=== PATIENT | male | born 1955 | race Caucasian/White ===

== ENCOUNTER 2022-01-09 14:09 | Emergency (ER) | payer SELFPAY ==
[2022-01-09] VITALS (8 sets, daily range): BP systolic 144–153; BP diastolic 70–74; PULSE 73–87; RESP 16; TEMP 36.9; O2SAT 95–98; BMI 31.3
--- NOTE | 2022-01-09 14:59 | DI.CT.S_ITS ---
PROCEDURE: CT HEAD/BRAIN WO CON INDICATIONS: fall with facial injuries TECHNIQUE: Noncontrast 4.5 mm thick angled axial sections acquired from the foramen magnum to the vertex, with coronal and sagittal reformats. For radiation dose reduction, the following was used: automated exposure control, adjustment of mA and/or kV according to patient size. COMPARISON: [facility], CT, CT FACIAL BONES WO CON, 01/09/2022, 15:06. FINDINGS: Image quality: Excellent. CSF spaces: Basal cisterns are patent. No extra-axial fluid collections. The ventricles are symmetric in size and shape. Brain: No intracranial bleeds or masses. There is cerebral volume loss for age, with resultant ventricular and sulcal prominence. There are periventricular and deep white matter chronic small vessel ischemic changes. There is intracranial internal carotid artery atherosclerosis. Skull and face: Right periorbital soft tissue swelling is seen. Soft tissue swelling is also seen involving the bridge of the nose. Mildly displaced nasal bone fractures can be seen. Calvarium and visualized facial bones appear intact, without suspicious lesions. Sinuses: Visualized sinuses and mastoids are clear. IMPRESSION: There is right periorbital soft tissue swelling, with swelling across the bridge of the nose. Mildly displaced nasal bone fractures are seen. No acute intracranial hemorrhage is seen. No acute intracranial process is seen. Dictated by: Con Christian M.D. on 01/09/2022 at 14:25 Approved by: Con Christian M.D. on 01/09/2022 at 14:26
--- NOTE | 2022-01-09 14:59 | ED_ITS ---
HPI - Fall General Chief Complaint: Fall Stated Complaint: Fall, Hit Head on Toilet, Laceration Time Seen by Provider: 01/09/22 14:44 Source: patient Mode of arrival: Ambulatory History of Present Illness HPI Narrative: Patient is a 66-year-old male. Not on anticoagulation. Earlier today he was coming out of the shower and slipped and fell forward hitting his face on the toilet. There was a loss of consciousness. He sustained a cut to his head and also a contusion to his right eye. He was seen at the clinic on [facility] and was sent to the emergency department by private vehicle for further evaluation. Patient expresses no vision changes. No loose teeth and missing teeth. No extremity discomfort. No chest pain. No abdominal pain. Related Data Allergies Allergy/AdvReac Type Severity Reaction Status Date / Time No Known Drug Allergies Allergy Unverified 01/09/22 10:44 Review of Systems Review of Systems ROS Unobtainable: All systems reviewed & are unremarkable except as noted in HPI and below Patient History Medical History Healthy adult Social History Smoking Status: Current every day smoker Smoking Status: Current every day smoker Substance Use Type: does not use Exam Initial Vital Signs Initial Vital Signs: Vital Signs Pulse Oximetry 97 01/09/22 14:16 Const General: cooperative, comfortable, well developed and No ill appearing HENMT Head: abrasion, laceration and No palpable skull fracture Ears: hearing grossly normal bilaterally Nose: septum normal and No epistaxis Face and sinus: ecchymosis (Around right eye) Mouth: oral mucosae normal Teeth and gingiva: dentition normal Eyes Pupils: PERRL EOM: EOM intact bilaterally Other: Contusion and ecchymosis around the right eye. No hyphema noted. No subconjunctival hemorrhage noted. Chest Chest: No crepitus and No tenderness Resp Effort & Inspection: normal respiratory effort Auscultation: clear to auscultation bilaterally Cardio Rate: regular rate Rhythm: regular rhythm Back/Spine/Pelvis Cervical Spine: cervical muscular tenderness (Right side) and No cervical spinal tenderness Skin Other: 7 cm laceration to his frontal scalp. No active bleeding. Had a superficial abrasion just lateral to his left eye. Has contusion over his nose. Also has a contusion on the back of his right hand. Neuro General: patient alert, patient awake, patient oriented x3 and moves all extremi ties Extrem General: normal to inspection and capillary refill normal Psych Appearance: grossly normal and well kempt Procedures Laceration Repair Laceration 1: Site: scalp Size (cm): 7 Description: linear Depth: simple, single layer Local Anesthetic: lidocaine 1% Amount of anesthesia used (mL): 10 Pre-repair: wound explored and deep structures intact Skin layer closed with: marc Scores Nexus Score for C-Spine Focal Neurologic deficit present: No Midline spinal tenderness present: No Altered level of conciousness present: No Intoxication present: No Distracting Injury Present: No Nexus Criteria for C-spine: 0 Course Orders Ordered: ED Orders 01/09/22 14:59 CT facial bones wo con Stat CT head/brain wo con Stat Discontinued Medications Bacitracin (Bacitracin Oint 0.9 Gm Pckt) 1 applic TOP NOW ONE Stop: 01/09/22 16:18 Last Admin: 01/09/22 16:20 Dose: 1 applic Documented By: DAMARIS Diphtheria/Tetanus/Acell Pertussis (Tet,Diph,Pertuss(Acell),Vac/Pf 0.5 Ml Syringe) 0.5 ml IM .ONCE ONE Stop: 01/09/22 14:33 Last Admin: 01/09/22 15:32 Dose: 0.5 ml Documented By: DAMARIS Lidocaine HCl (Lidocaine 1% 20 Ml) 20 ml INJ INTRA-OP ONE Stop: 01/09/22 15:54 Last Admin: 01/09/22 16:06 Dose: Not Given Documented By: DAMARIS Lidocaine HCl (Lidocaine 1% (Pf) 5 Ml) 10 ml INJ NOW ONE Stop: 01/09/22 15:57 Last Admin: 01/09/22 16:06 Dose: 10 ml Documented By: DAMARIS Vital Signs Vital signs: Vital Signs - 8 hr 01/09/22 14:20 01/09/22 14:16 01/09/22 14:17 Temperature 98.5 F Pulse Rate 84 87 Respiratory Rate 16 Blood Pressure 144/70 H Pulse Oximetry 97 97 97 Oxygen Delivery Method Room Air 01/09/22 14:17 01/09/22 14:30 01/09/22 15:00 Temperature Pulse Rate 81 77 Respiratory Rate Blood Pressure 144/70 H Pulse Oximetry 96 95 Oxygen Delivery Method 01/09/22 15:30 01/09/22 16:00 01/09/22 16:26 Temperature Pulse Rate 77 73 Respiratory Rate Blood Pressure 153/74 H Pulse Oximetry 97 97 Oxygen Delivery Method 01/09/22 16:26 Temperature Pulse Rate 84 Respiratory Rate Blood Pressure Pulse Oximetry 98 Oxygen Delivery Method MDM - Fall Imaging Data CT face: Radiologist's Impression: Close Head CT (Signed) Con Christian - 01/09/[address] (Signed) Con Christian - 01/09/22 Launch?Image [address] [address] [address] Scan Report Signed Patient: Raul Koch MR#: [id number] : 1955 Acct:[id number] Age/Sex: 66 / M Date of Service: 01/09/22 Loc: ED Accession Number: [id number] ?? Procedure: CT facial bones wo con Ordering Provider: Armando Ann D.O. PROCEDURE:? CT FACIAL BONES WO CON ? INDICATIONS:? fall with right obit injuries ? TECHNIQUE:? Noncontrast 2.5 mm thick axial images acquired from the mandible through the frontal sinuses, with coronal and sagittal reformatting.? For radiation dose reduction, the following was used:? automated exposure control, adjustment of mA and/or kV according to patient size.? ? COMPARISON:? [facility], CT, CT HEAD/BRAIN WO CON, 01/09/2022, 15:06. ? FINDINGS:? Image quality:? Excellent.? ? Bones and teeth:? Mildly displaced nasal bone fractures are seen. ? No acute nasal septal fracture is seen.? There is chronic mild rightward nasal septal deviation. ? Orbital felder are intact.? Sinus felder show no fracture or deformity.? Visualized portions of the mandible demonstrate no fractures or subluxation.? Zygomatic arches are intact.? Pterygoid plates are intact.? Visualized portions of the skull base and auditory canals are intact.? ? Sinuses:? Aewf-lu-wduitejh mucosal thickening is seen within the ethmoid air cells and within the sphenoid sinuses.? Mild mucosal thickening is seen along the inferior aspect of the right maxillary sinus.? The ostiomeatal complexes are patent, yet they are constitutionally narrowed, with bilateral Corwin cells. ? Soft tissues:? Right periorbital soft tissue swelling is seen.? Swelling is also seen across the bridge of the nose. ? Vascular:? Visualized vascular structures appear normal in the absence of co ntrast.? Bony vascular foramina and canals are intact.? ? IMPRESSION:? Mildly displaced nasal bone fractures. ? Soft tissue swelling involving the right periorbital region and the bridge of the nose. ? ? Dictated by: Con Christian M.D. on 01/09/2022 at 14:22 ? ? Approved by: Con Christian M.D. on 01/09/2022 at 14:25?? CT scan - head: Radiologist's Impression: Raul Koch??66??M??1955 ? Allergy/Adv: No Known Drug Allergies Close Head CT (Signed) Con Christian - 01/09/[address] (Signed) Con Christian - 01/09/22 Launch?[place] [address] CT Scan Report Signed Patient: Raul Koch MR#: [id number] : 1955 Acct:[id number] Age/Sex: 66 / M Date of Service: 01/09/22 Loc: ED Accession Number: [id number] ?? Procedure: CT head/brain wo con Ordering Provider: Armando Ann D.O. PROCEDURE:? CT HEAD/BRAIN WO CON ? INDICATIONS:? fall with facial injuries ? TECHNIQUE:? Noncontrast 4.5 mm thick angled axial sections acquired from the foramen magnum to the vertex, with coronal and sagittal reformats.? For radiation dose reduction, the following was used:? automated exposure control, adjustment of mA and/or kV according to patient size.? ? COMPARISON:? [facility], CT, CT FACIAL BONES WO CON, 01/09/2022, 15:06. ? FINDINGS:? Image quality:? Excellent.? ? CSF spaces:? Basal cisterns are patent.? No extra-axial fluid collections.? The ventricles are symmetric in size and shape.? ? Brain:? No intracranial bleeds or masses.? There is cerebral volume loss for age, with resultant ventricular and sulcal prominence.? There are periventricular and deep white matter chronic small vessel ischemic changes.? There is intracranial internal carotid artery atherosclerosis.? ? Skull and face:? Right periorbital soft tissue swelling is seen.? Soft tissue swelling is also seen involving the bridge of the nose.? Mildly displaced nasal bone fractures can be seen.? Calvarium and visualized facial bones appear intact, without suspicious lesions.? ? Sinuses:? Visualized sinuses and mastoids are clear.? ? ? IMPRESSION:? There is right periorbital soft tissue swelling, with swelling across the bridge of the nose.? Mildly displaced nasal bone fractures are seen. ? No acute intracranial hemorrhage is seen.? ? No acute intracranial process is seen.? Dictated by: Con Christian M.D. on 01/09/2022 at 14:25 ? ? Approved by: Con Christian M.D. on 01/09/2022 at 14:26?? MDM Narrative Medical decision making narrative: Head CT is unremarkable. Facial CT does show nasal bone fractures but no orbital fractures. His right eye other than the periorbital contusion is unremarkable. The scalp laceration was closed as described above. No midline neck discomfort. Read by nexus criteria. Patient has no extremity injuries. W ill discharge home with care instructions. She was given return precautions. He expressed understanding and agreement. Discharge Plan Departure Patient Disposition: Home Clinical Impression: Laceration of head, Contusion of eye, right, Fall, Fracture of nasal bone Instructions: Eye Contusion, DI for Laceration Repair -- Marc Activity Restrictions/Additional Instructions: The marc do need to be removed in 7-10 days. Your primary doctor can do this. You can shower like normal. You can put antibiotic ointment over the areas. I would expect your right eye to be somewhat worse tomorrow than what it is today. Placing ice over this will be helpful. Return to the emergency department for any new or worsening symptoms. Referrals: Gertrude Burnett PA-C [Primary Care Provider] - Visit Report Forms: Patient Portal/API
--- NOTE | 2022-01-09 14:59 | DI.CT.S_ITS ---
PROCEDURE: CT FACIAL BONES WO CON INDICATIONS: fall with right obit injuries TECHNIQUE: Noncontrast 2.5 mm thick axial images acquired from the mandible through the frontal sinuses, with coronal and sagittal reformatting. For radiation dose reduction, the following was used: automated exposure control, adjustment of mA and/or kV according to patient size. COMPARISON: [facility], CT, CT HEAD/BRAIN WO CON, 01/09/2022, 15:06. FINDINGS: Image quality: Excellent. Bones and teeth: Mildly displaced nasal bone fractures are seen. No acute nasal septal fracture is seen. There is chronic mild rightward nasal septal deviation. Orbital felder are intact. Sinus felder show no fracture or deformity. Visualized portions of the mandible demonstrate no fractures or subluxation. Zygomatic arches are intact. Pterygoid plates are intact. Visualized portions of the skull base and auditory canals are intact. Sinuses: [id number]-[id number] mucosal thickening is seen within the ethmoid air cells and within the sphenoid sinuses. Mild mucosal thickening is seen along the inferior aspect of the right maxillary sinus. The ostiomeatal complexes are patent, yet they are constitutionally narrowed, with bilateral Corwin cells. Soft tissues: Right periorbital soft tissue swelling is seen. Swelling is also seen across the bridge of the nose. Vascular: Visualized vascular structures appear normal in the absence of contrast. Bony vascular foramina and canals are intact. IMPRESSION: Mildly displaced nasal bone fractures. Soft tissue swelling involving the right periorbital region and the bridge of the nose. Dictated by: Con Christian M.D. on 01/09/2022 at 14:22 Approved by: Con Christian M.D. on 01/09/2022 at 14:25
[2022-01-09] MEDS: TET,DIPH,PERTUSS(ACELL),VAC/PF 0.5 ML SYRINGE IM (15:32)
[2022-01-09] MEDS: LIDOCAINE 1% (PF) 5 ML 10 ML INJ (16:06)
[2022-01-09] MEDS: BACITRACIN OINT 0.9 GM PCKT 1 APPLIC TOP (16:20)
== END 2022-01-09 16:33 | disposition home or self-care (01) ==
PROVIDERS: Emergency Provider Emergency Medicine; PCP Physician Assistant
DX: S01.01XA Laceration without foreign body of scalp, initial encounter (principal); S00.11XA Contusion of right eyelid and periocular area, initial encounter; S02.2XXA Fracture of nasal bones, initial encounter for closed fracture; W18.09XA Striking against other object with subsequent fall, initial encounter; Z23 Encounter for immunization
CPT/HCPCS: 12002; 70450; 70486; 90471; 99283; 99284; 90715

== ENCOUNTER → 2024-03-23 10:06 | Outpatient (CLI) | payer SELFPAY ==
[2024-03-23 20:40] LABS: Hemoglobin 14.4 g/dL (13.5-17.5); Mean Corpuscular HGB Conc 34.2 % (30-36); Mean Corpuscular Hemoglobin 31.5 PG (26-34); Mean Corpuscular Volume 92.1 fL (80-100); Platelet Count 361 X10^3/uL (150-400); Red Blood Cell Count 4.56 X10^6/uL (4.5-5.9); Red Cell Distribution Width 13.6 % (11.6-14.8); White Blood Cell Count 12.1 X10^3/uL (4.5-11.0)
[2024-03-23 20:49] LABS: Alanine Aminotransferase 49 IU/L (<50); Albumin 4.3 g/dL (3.5-5.0); Albumin Globulin Ratio 1.5 (1.0-2.8); Alkaline Phosphatase 100 U/L (38-126); Aspartate Aminotransferase 46 IU/L (17-59); BUN Creatinine Ratio 20.3 (6-22); Bilirubin Total 0.7 mg/dL (0.2-1.3); Blood Urea Nitrogen 15 mg/dL (9-20); Calcium 9.2 mg/dL (8.4-10.2); Carbon Dioxide 21 mmol/L (22-32); Chloride 108 mmol/L (98-107); Cholesterol 292 mg/dL (140-199); Estimated Glomerular Filt Rate > 60 mL/min (>60); Globulin 2.9 g/dL (1.7-4.1); Glucose 102 mg/dL (80-110); HDL Cholesterol 50 mg/dL (40-60); HEMOLYSIS 33 (0-50); LDL Cholesterol Calculated 204 mg/dL (<100); Potassium 4.5 mmol/L (3.4-5.1); Sodium 137 mmol/L (137-145); Total Protein 7.2 g/dL (6.3-8.2); Triglycerides 190 mg/dL (35-150)
[2024-03-23 21:17] LABS: Prostate Specific Antigen 8.55 ng/mL (0.10-4.00); TSH w/ Reflex to FT4 2.89 uIU/mL (0.47-4.68)
== END ==
PROVIDERS: PCP Physician Assistant Medical; Visit Provider Physician Assistant Medical
DX: Z12.5 Encounter for screening for malignant neoplasm of prostate (principal); I10 Essential (primary) hypertension; I25.10 Atherosclerotic heart disease of native coronary artery without angina pectoris
CPT/HCPCS: 80053; 80061; 84153; 84443; 85027

== ENCOUNTER → 2024-06-19 08:56 | Outpatient (CLI) | payer SELFPAY ==
[2024-06-19 18:48] LABS: Add Manual Diff / Slide Review NO; Basophils Absolute Auto 100 /uL (0-100); Basophils Percent Auto 0.8 % (0-2); Eosinophils Absolute Auto 200 /uL (0-450); Eosinophils Percent Auto 1.7 % (2-4); Hematocrit 42.5 % (41-53); Hemoglobin 14.4 g/dL (13.5-17.5); Lymphocytes Absolute Auto 3300 /uL (1100-4500); Lymphocytes Percent Auto 25.1 % (25-40); Mean Corpuscular HGB Conc 33.9 % (30-36); Mean Corpuscular Hemoglobin 31.8 PG (26-34); Mean Corpuscular Volume 93.6 fL (80-100); Monocytes Absolute Auto 1300 /uL (0-900); Monocytes Percent Auto 9.9 % (3-14); Neutrophils Absolute Auto 8200 /uL (1500-7000); Neutrophils Percent Auto 62.5 % (50-75); Platelet Count 437 X10^3/uL (150-400); Red Blood Cell Count 4.54 X10^6/uL (4.5-5.9); Red Cell Distribution Width 13.8 % (11.6-14.8); White Blood Cell Count 13.2 X10^3/uL (4.5-11.0)
[2024-06-19 18:49] LABS: Alanine Aminotransferase 36 IU/L (<50); Albumin 4.2 g/dL (3.5-5.0); Albumin Globulin Ratio 1.2 (1.0-2.8); Alkaline Phosphatase 105 U/L (38-126); Aspartate Aminotransferase 48 IU/L (17-59); BUN Creatinine Ratio 21.6 (6-22); Bilirubin Total 0.8 mg/dL (0.2-1.3); Blood Urea Nitrogen 22 mg/dL (9-20); Calcium 9.5 mg/dL (8.4-10.2); Carbon Dioxide 25 mmol/L (22-32); Chloride 103 mmol/L (98-107); Cholesterol 206 mg/dL (140-199); Estimated Glomerular Filt Rate > 60 mL/min (>60); Globulin 3.4 g/dL (1.7-4.1); Glucose 114 mg/dL (80-110); HDL Cholesterol 47 mg/dL (40-60); HEMOLYSIS < 15 (0-50); LDL Cholesterol Calculated 136 mg/dL (<100); Potassium 4.3 mmol/L (3.4-5.1); Sodium 137 mmol/L (137-145); Total Protein 7.6 g/dL (6.3-8.2); Triglycerides 116 mg/dL (35-150)
[2024-06-19 19:19] LABS: Prostate Specific Antigen Scrn 9.34 ng/mL (0.1-4.0)
== END ==
PROVIDERS: PCP Physician Assistant Medical; Visit Provider Physician Assistant Medical
DX: Z12.5 Encounter for screening for malignant neoplasm of prostate (principal); Z13.6 Encounter for screening for cardiovascular disorders; Z13.29 Encounter for screening for other suspected endocrine disorder; R97.20 Elevated prostate specific antigen [PSA]; I25.10 Atherosclerotic heart disease of native coronary artery without angina pectoris
CPT/HCPCS: 80053; 80061; 85025; G0103

== ENCOUNTER → 2024-09-19 09:09 | Outpatient (CLI) | payer SELFPAY ==
[2024-09-19 19:27] LABS: Hematocrit 43.6 % (41-53); Hemoglobin 14.8 g/dL (13.5-17.5); Mean Corpuscular Hemoglobin 31.6 PG (26-34); Mean Corpuscular Volume 92.8 fL (80-100); Platelet Count 396 X10^3/uL (150-400); Red Cell Distribution Width 13.4 % (11.6-14.8); White Blood Cell Count 13.5 X10^3/uL (4.5-11.0)
[2024-09-19 19:34] LABS: Alanine Aminotransferase 35 IU/L (<50); Albumin Globulin Ratio 1.3 (1.0-2.8); Alkaline Phosphatase 100 U/L (38-126); Aspartate Aminotransferase 38 IU/L (17-59); Bilirubin Total 0.3 mg/dL (0.2-1.3); Blood Urea Nitrogen 16 mg/dL (9-20); Calcium 9.1 mg/dL (8.4-10.2); Carbon Dioxide 26 mmol/L (22-32); Chloride 103 mmol/L (98-107); Cholesterol 194 mg/dL (140-199); Estimated Glomerular Filt Rate > 60 mL/min (>60); Glucose 108 mg/dL (80-110); HDL Cholesterol 40 mg/dL (40-60); HEMOLYSIS < 15 (0-50); LDL Cholesterol Calculated 128 mg/dL (<100); Potassium 4.4 mmol/L (3.4-5.1); Sodium 138 mmol/L (137-145); Triglycerides 128 mg/dL (35-150)
[2024-09-20 13:01] LABS: Hemoglobin A1C% w Est Avg Glu 5.3 % (4.0-6.0)
== END ==
PROVIDERS: PCP Physician Assistant Medical; Visit Provider Physician Assistant Medical
DX: R73.9 Hyperglycemia, unspecified (principal); I10 Essential (primary) hypertension; E78.00 Pure hypercholesterolemia, unspecified; R79.89 Other specified abnormal findings of blood chemistry
CPT/HCPCS: 80053; 80061; 83036; 85027

== ENCOUNTER → 2024-12-19 09:08 | Outpatient (CLI) | payer SELFPAY ==
[2024-12-19 19:13] LABS: Cholesterol 192 mg/dL (140-199); HDL Cholesterol 47 mg/dL (40-60); LDL Cholesterol Calculated 126 mg/dL (<100); Triglycerides 96 mg/dL (35-150)
== END ==
LOC: LAB 09:08
PROVIDERS: PCP Physician Assistant Medical; Visit Provider Physician Assistant Medical
DX: E78.00 Pure hypercholesterolemia, unspecified (principal)
CPT/HCPCS: 80061